=== PATIENT | female | born 1945 | race Caucasian/White ===

== ENCOUNTER → 2020-11-15 10:51 | Outpatient (CLI) | payer MEDICARE, OTHER, SELFPAY ==
--- NOTE | 2020-11-15 10:55 | DI.RAD.S_ITS ---
PROCEDURE: XR LUMBAR SPINE MIN 4V INDICATIONS: Lumbar radiculopathy TECHNIQUE: 5 views of the lumbar spine were acquired, including bilateral oblique views. COMPARISON: None. FINDINGS: Bones: No acute fracture identified. Lumbar dextroscoliosis is noted. Multilevel degenerative endplate sclerosis and spurring. Diffuse facet arthropathy. Postsurgical changes with interbody cage graft seen at the L4-L5 level. There is residual grade 1/2 anterolisthesis of L4 on L5. Severe narrowing of the L2-L3 disc space. Moderate narrowing of the remaining lumbar disc spaces. Bilateral hip and sacroiliac degenerative changes, sclerosis and spurring. Lucency in the region of the L4 pars interarticularis on the lateral view. Soft tissues: Surgical staple line projects in the left abdomen. Oblique images: No pars defects. IMPRESSION: Dextroscoliosis and multilevel moderate to severe spondylosis as above. Diffuse facet arthropathy Dictated by: Akira Amaya M.D. on 11/15/2020 at 11:54 Approved by: Akira Amaya M.D. on 11/15/2020 at 12:00
== END ==
PROVIDERS: PCP Physician Assistant; Referring Provider Physical Medicine & Rehabilitation; Visit Provider Physical Medicine & Rehabilitation
DX: M47.26 Other spondylosis with radiculopathy, lumbar region (principal); M41.86 Other forms of scoliosis, lumbar region; M43.16 Spondylolisthesis, lumbar region; M48.061 Spinal stenosis, lumbar region without neurogenic claudication; Z98.1 Arthrodesis status
CPT/HCPCS: 72110

== ENCOUNTER → 2021-02-18 09:15 | Outpatient (CLI) | payer MEDICARE, OTHER, SELFPAY ==
[2021-02-18 10:10] LABS: Cholesterol 124 mg/dL (140-199); HDL Cholesterol 69 mg/dL (40-60); LDL Cholesterol Calculated 43 mg/dL (<100); Triglycerides 58 mg/dL (35-150)
== END ==
PROVIDERS: PCP Physician Assistant; Referring Provider Internal Medicine Cardiovascular Disease; Visit Provider Internal Medicine Cardiovascular Disease
DX: E78.2 Mixed hyperlipidemia (principal); D50.9 Iron deficiency anemia, unspecified; Z98.84 Bariatric surgery status
CPT/HCPCS: 36415; 80061

== ENCOUNTER → 2021-02-19 14:44 | Outpatient (CLI) | payer MEDICARE, OTHER, SELFPAY ==
--- NOTE | 2021-02-19 | DI.MG.S_ITS ---
BILATERAL DIGITAL SCREENING MAMMOGRAM 3D/2D WITH CAD: 02/19/2021 CLINICAL: Routine screening. Comparison is made to exams dated: 10/04/2015 mammogram, 10/11/2016 mammogram, and 05/02/2019 ultrasound - outside facility. The tissue of both breasts is heterogeneously dense. This may lower the sensitivity of mammography. Current study was also evaluated with a Computer Aided Detection (CAD) system. There are calcifications in both breasts. There also are benign vascular calcifications in both breasts. No significant masses, calcifications, or other findings are seen in either breast. There has been no significant interval change. IMPRESSION: BENIGN There is no mammographic evidence of malignancy. A 1 year screening mammogram is recommended. This exam was interpreted at Station ID: [id number]. NOTE: For mammograms, a report in lay terms will be sent to the patient. Approximately 15% of breast malignancies will not be visualized mammographically. In the management of a palpable breast mass, a negative mammogram must not discourage biopsy of a clinically suspicious lesion. Electronically Signed By: Moe Hicks M.D. at/:02/21/2021 15:33:55 letter sent: Normal Exam ACR BI-RADS Category 2: Benign Finding(s) 3342F
== END ==
PROVIDERS: PCP Physician Assistant; Referring Provider Physician Assistant; Visit Provider Physician Assistant
DX: Z12.31 Encounter for screening mammogram for malignant neoplasm of breast (principal)
CPT/HCPCS: 77063; 77067

== ENCOUNTER → 2021-04-08 16:12 | Outpatient (CLI) | payer MEDICARE, OTHER, SELFPAY ==
[2021-04-08 17:29] LABS: Erythrocyte Sedimentation Rate 14 MM/HR (0-20)
[2021-04-08 18:21] LABS: C-Reactive Protein Quant < 0.5 mg/dL (<1.0)
== END ==
PROVIDERS: PCP Physician Assistant; Referring Provider Orthopaedic Surgery; Visit Provider Orthopaedic Surgery
DX: Z96.659 Presence of unspecified artificial knee joint (principal)
CPT/HCPCS: 36415; 83520; 85651; 86140

== ENCOUNTER → 2021-05-02 08:49 | Outpatient (CLI) | payer MEDICARE, OTHER, SELFPAY ==
[2021-05-02 12:12] LABS: COVID19 -Nasal RAPID Negative (Negative)
== END ==
PROVIDERS: PCP Physician Assistant; Visit Provider Physician Assistant
DX: Z20.822 Contact with and (suspected) exposure to COVID-19 (principal)
CPT/HCPCS: 87635; C9803

== ENCOUNTER → 2021-05-04 09:12 | Outpatient (CLI) | payer MEDICARE, OTHER, SELFPAY ==
--- NOTE | 2021-05-04 | DI.ECHO.S_ITS ---
[place] [facility]---------+ [facility] +---------+ : : [address] [place] : : : : [id number] : : : : Phone: [phone]+ Echocardiogram Report + + :Name: JOSE YARBROUGH Study Date: 05/04/2021 Height: 60.5 in: :[facility] ReadingLocation: Weight: 157 lb : : Gender: Female BSA: 1.7 m2 : :: 1945 Age: 76 yrs BP: 148/91 mmHg: :Reason For Study: DYSPNEA, DIASTOLIC HEART FAILURE : :Ordering Physician: NIMA, : :NONA Performed By: Pippa Coburn : :Referring: NONA MARRERO E : + + Interpretation Summary The ejection fraction is estimated to be 65-70%. Grade II diastolic dysfunction. Visually, the left atrium is moderately dilated. The right ventricle is at the upper limits of normal in size. The right ventricular systolic function is normal. The right atrium is mildly dilated. There is evidence of an intrapulmonary shunt; 6 beats after agitated saline contrast injection, bubbles seen in left atrium. There is mild mitral regurgitation. There is mild to moderate tricuspid regurgitation. PASP is approximately 30 to 35 mmHg. Procedure: A two-dimensional transthoracic echocardiogram with color flow and Doppler was performed. The study quality was technically adequate. There is no prior echocardiogram noted for this patient. A saline contrast injection was performed to assess for cardiac shunting. The injection was performed through an intravenous line in the left arm. The patient was in sinus rhythm with heart rates between 61-74 bpm during the exam. Left Ventricle: The left ventricle is normal in size. Proximal septal thickening is noted. The ejection fraction is estimated to be 65-70%. Grade II diastolic dysfunction. Right Ventricle: The right ventricle is at the upper limits of normal in size. The right ventricular systolic function is normal. Atria: Visually, the left atrium is moderately dilated. The right atrium is mildly dilated. There is no Doppler evidence for an interatrial shunt. Injection of contrast documented no interatrial shunt. There is evidence of an intrapulmonary shunt; 6 beats after agitated saline contrast injection, bubbles seen in left atrium. Mitral Valve: There is mild mitral annular calcification. The mitral regurgitant jet is eccentrically directed. There is mild mitral regurgitation. Aortic Valve: The aortic valve is trileaflet. The aortic valve opens well. There is no aortic valve stenosis. There is mild aortic regurgitation. Tricuspid Valve: The tricuspid valve is normal in structure and function. There is mild to moderate tricuspid regurgitation. PASP is approximately 30 to 35 mmHg. Pulmonic Valve: The pulmonic valve leaflets are thin and pliable; valve motion is normal. There is no pulmonic valvular regurgitation. Great Vessels: The aortic root is normal size. The ascending aorta is at the upper limits of normal in size. The IVC is of normal diameter and collapses greater than 50% with a sniff. This suggests a low right atrial pressure of 3 mm Hg. Pericardium/ Pleura There is no pericardial effusion. There is no pleural effusion. MMode/2D Measurements & Calculations LVIDd: 5.1 cm LVOT diam: 2.0 cm LVIDs: 2.9 cm Ao root diam: 3.4 cm FS: 41.8 % asc Aorta Diam: 3.4 cm IVSd: 0.91 cm LVPWd: 1.0 cm LV armando. diameter/BSA (cm/m^2): 3.0 LV sys. diameter/BSA (cm/m^2): 1.7 LA A2 area: 31.3 cm2 RA long axis: 4.8 cm LA A4 area: 26.9 cm2 RA area: 19.1 cm2 LA length (vol): 5.6 cm RA vol: 63.8 ml LA vol: 127.3 ml RA : 37.7 ml/m2 LA vol index: 75.1 ml/m2 IVC diam: 1.3 cm RVD1 (basal): 4.0 cm TAPSE: 2.7 cm Doppler Measurements & Calculations Ao V2 max: 170.4 cm/sec LVOT Max Socrates: 135.0 cm/sec Ao V2 mean: 113.7 cm/sec LV V1 max P.3 mmHg Ao max P.6 mmHg LV V1 VTI: 30.0 cm Ao mean P.8 mmHg SONI(I,D): 2.6 cm2 Ao V2 VTI: 36.2 cm SONI(V,D): 2.5 cm2 sev ratio: 0.83 SONI indexed to BSA (cm^2/m^2): 1.5 AI P1/2t: 682.8 msec AI dec slope: 189.7 cm/sec2 MV E max socrates: 96.9 cm/sec TR max socrates: 258.0 cm/sec MV A max socrates: 128.3 cm/sec TR max P.6 mmHg MV E/A: 0.76 PA V2 max: 98.5 cm/sec Med Peak E' Socrates: 4.3 cm/sec PA V2 mean: 67.7 cm/sec E/E' med: 22.8 PA mean P.0 mmHg Lat Peak E' Scorates: 5.0 cm/sec PA pr(Accel): 32.8 mmHg E/E' lat: 19.5 E/e' average: 21.1 MV dec time: 0.34 sec SV(LVOT): 94.0 ml Reading Physician:02:35 PM
--- NOTE | 2021-05-04 18:35 | DI.NM.S_ITS ---
DATE OF SERVICE: 05/04/2021 PROCEDURE PERFORMED: Pharmacologic vasodilator stress and rest myocardial perfusion imaging with gating to assess ejection fraction and regional wall motion. ORDERING PROVIDER: Dr. Nona Marrero. INDICATIONS: The patient is a 76-year-old female with exertional dyspnea, palpitations, and cardiomyopathy. PHARMACOLOGIC STRESS: Per protocol, 0.4 mg of regadenoson was infused with a normal hemodynamic response. The patient developed mild dyspnea and flushing, but no chest discomfort. Her resting ECG shows sinus rhythm with normal ST segments, and there are no significant ST-segment shifts or arrhythmias with stress. Per protocol, 25.0 millicuries of technetium-99m Myoview was injected and she was imaged 10 minutes later using a gated SPECT acquisition protocol. Earlier in the day while at rest, she had been injected with 12.2 millicuries of technetium-99m Myoview and was imaged 20 minutes later, again using a gated SPECT acquisition protocol. FINDINGS: 1. Raw data: There is good myocardial tracer uptake. The lung/heart ratio is normal at 0.30 with a normal TID ratio of 1.15. 2. Quantitated gated SPECT: Post-stress ejection fraction is estimated at 77% without any focal wall motion abnormality. The resting ejection fraction is calculated at 85%, although visually appears quite similar to that of the post-stress ejection fraction. Resting end-diastolic volume is normal at 85 mL. 3. Myocardial perfusion imaging: Post-stress supine images shows a normal myocardial perfusion pattern without any perfusion defects, supported by normal perfusion imaging in the prone position. The resting images show an identical perfusion pattern without any areas of significant improvement. IMPRESSION: 1. Normal myocardial perfusion study. 2. No evidence of myocardial ischemia or previous myocardial infarction. 3. Normal left ventricular systolic function with normal left ventricular volumes and no focal wall motion abnormality. 4. Dyspnea, but no chest discomfort or ECG evidence of ischemia with pharmacologic vasodilator stress. Namita Shaikh - [place]/jose/babak doc#: [id number]/job#: [id number] dd: 05/04/2021 16:30:00 dt: 05/04/2021 18:25:00 DICTATING MD/COPIES TO: Dorian Pardo MD; Nona Marrero M.D. COPIES MNE: PATY;
== END ==
PROVIDERS: PCP Physician Assistant; Referring Provider Internal Medicine Cardiovascular Disease; Visit Provider Internal Medicine Cardiovascular Disease
DX: I08.3 Combined rheumatic disorders of mitral, aortic and tricuspid valves (principal); I25.119 Atherosclerotic heart disease of native coronary artery with unspecified angina pectoris; I50.32 Chronic diastolic (congestive) heart failure; I42.9 Cardiomyopathy, unspecified; R06.00 Dyspnea, unspecified; R00.2 Palpitations
CPT/HCPCS: 78452; 93017; 93306; A9502; J2785

== ENCOUNTER → 2021-05-05 09:21 | Outpatient (CLI) | payer MEDICARE, OTHER, SELFPAY ==
--- NOTE | 2021-05-05 | DI.US.S_ITS ---
LIMITED ULTRASOUND OF RIGHT BREAST: 05/05/2021 CLINICAL: Focal right breast pain. Comparison is made to exams dated: 02/19/2021 mammogram - [facility], 05/02/2019 ultrasound, 04/04/2017 mammogram, and 04/04/2017 ultrasound - outside facility. Real-time ultrasound of the right breast 2-3 o'clock region was performed on the area of interest. No discrete cystic or solid mass lesion identified in the area of focal pain. IMPRESSION: NEGATIVE There is no sonographic evidence of malignancy. There is no abnormality seen in the right breast to correspond with the pain at 2:30 o'clock, however, clinical followup is recommended. Return to annual mammogram screening schedule is recommended. Future imaging is recommended as follows: 02/20/2022 screening mammogram. This exam was interpreted at Station ID: [id number]. Electronically Signed By: Sheng Espino M.D. ddp/:05/05/2021 12:13:47 letter sent: Clinical Evaluation Ultrasound BI-RADS: 1 Negative
== END ==
PROVIDERS: PCP Physician Assistant; Referring Provider Physician Assistant; Visit Provider Physician Assistant
DX: N64.4 Mastodynia (principal)
CPT/HCPCS: 76642

== ENCOUNTER → 2021-11-04 15:44 | Outpatient (CLI) | payer MEDICARE, OTHER, SELFPAY ==
--- NOTE | 2021-11-04 | DI.US.S_ITS ---
PROCEDURE: US CAROTID DOPPLER BI INDICATIONS: Atherosclerosis of aorta TECHNIQUE: Color and pulse Doppler interrogation was performed of both carotid systems, with image documentation and velocity measurements. COMPARISON: None. FINDINGS: Stenosis calculations are based on SRU (Society of Radiologists in Ultrasound) criteria. Right side: Brachial blood pressure: 132/80 mm Hg. Common carotid artery peak systolic velocity: 111 cm/sec. Internal carotid artery peak systolic velocity: 73 cm/sec. Internal carotid artery end diastolic velocity: 26 cm/sec. External carotid artery peak systolic velocity: 75 cm/sec. ICA/CCA peak systolic ratio: 0.7 . Porter scale imaging description: Mild scattered plaque Percent internal carotid artery stenosis: Less than 50% . Vertebral artery: Flow direction is antegrade. Left side: Brachial blood pressure: 133/81 mm Hg. Common carotid artery peak systolic velocity: 67 cm/sec. Internal carotid artery peak systolic velocity: 71 cm/sec. Internal carotid artery end diastolic velocity: 22 cm/sec. External carotid artery peak systolic velocity: 36 cm/sec. ICA/CCA peak systolic ratio: 1.1 . Porter scale imaging description: Moderate scattered plaque. Percent internal carotid artery stenosis: Less than 50% . Vertebral artery: Flow direction is antegrade. IMPRESSION: Less than 50% bilateral internal carotid artery stenosis. Dictated by: Virgil Navarro [facility] Interpreted: Daniel Cosme MD on 11/04/2021 at 16:34 Transcribed by: KARL on 11/04/2021 at 16:35 Approved by: Daniel Cosme M.D. on 11/04/2021 at 17:04
== END ==
PROVIDERS: PCP Physician Assistant; Referring Provider Internal Medicine Cardiovascular Disease; Visit Provider Internal Medicine Cardiovascular Disease
DX: I65.23 Occlusion and stenosis of bilateral carotid arteries (principal); I70.0 Atherosclerosis of aorta
CPT/HCPCS: 93880

== ENCOUNTER → 2022-01-23 18:33 | Outpatient (CLI) | payer MEDICARE, OTHER, SELFPAY ==
[2022-01-23 19:19] LABS: COVID19 -Nasal RAPID Negative (Negative)
== END ==
PROVIDERS: PCP Physician Assistant; Visit Provider Student in an Organized Health Care Education/Training Program
DX: Z20.822 Contact with and (suspected) exposure to COVID-19 (principal)
CPT/HCPCS: 87635

== ENCOUNTER 2022-02-02 01:31 | Emergency (ER) | payer MEDICARE, OTHER, SELFPAY ==
[2022-02-02 01:35] VITALS: BP 124/67; PULSE 62; RESP 18; TEMP 36.6; O2SAT 92
--- NOTE | 2022-02-02 01:36 | DI.RAD.S_ITS ---
PROCEDURE: XR FEMUR LT MIN 2V INDICATIONS: fall with pain TECHNIQUE: 6 views of the femur were acquired. COMPARISON: None. FINDINGS: Bones: A left knee prosthesis is demonstrated with long-stem femoral and tibial components. A mildly displaced periprosthetic spiral fracture is demonstrated in the distal femoral shaft. Proximal femur appears intact. Visualized bony pelvis also appears intact. There is deformity of the visualized proximal tibial shaft likely representing sequelae of prior trauma. Soft tissues: No suspicious soft tissue calcifications or masses. There is diffuse atrophy of the visualized musculature. IMPRESSION: 1. Periprosthetic fracture of the distal femoral shaft. Dictated by: Sheng Espino M.D. on 02/02/2022 at 2:14 Approved by: Sheng Espino M.D. on 02/02/2022 at 2:16
--- NOTE | 2022-02-02 01:37 | DI.CT.S_ITS ---
PROCEDURE: CT HEAD/BRAIN WO CON INDICATIONS: syncope, fall, injury TECHNIQUE: Noncontrast 4.5 mm thick angled axial sections acquired from the foramen magnum to the vertex, with coronal and sagittal reformats. For radiation dose reduction, the following was used: automated exposure control, adjustment of mA and/or kV according to patient size. COMPARISON: [facility], CT, CT CERVICAL SPINE WO CON, 02/02/2022, 2:05. FINDINGS: Image quality: Excellent. CSF spaces: Basal cisterns are patent. No extra-axial fluid collections. Ventricles are normal in size and shape. Brain: No midline shift. No intracranial masses or hemorrhage. No area of hypodensity in a large vascular distribution to suggest acute infarction. Periventricular hypodensity consistent with chronic microvascular ischemic change. Age-related parenchymal loss. Skull and face: Calvarium and visualized facial bones are intact, without suspicious lesions. Sinuses: Visualized sinuses and mastoids are clear. IMPRESSION: No acute intracranial abnormality. This report is concordant with the overnight preliminary interpretation. Dictated by: Sony Cabezas M.D. on 02/02/2022 at 7:54 Approved by: Sony Cabezas M.D. on 02/02/2022 at 7:57
--- NOTE | 2022-02-02 01:37 | DI.CT.S_ITS ---
PROCEDURE: CT CERVICAL SPINE WO CON INDICATIONS: syncope, fall, injury TECHNIQUE: Noncontrast 3 mm thick sections acquired from the skull base to the T4 level. Sagittal and coronal reformats were then constructed. For radiation dose reduction, the following was used: automated exposure control, adjustment of mA and/or kV according to patient size. COMPARISON: None. FINDINGS: Image quality: Excellent. Bones: ACDF at C5-C7. No fractures or dislocations. Anterolisthesis of L3 on L4 measuring 0.2 cm. Anterolisthesis of C7 on T1 measuring at 0.3 cm. Loss of intervertebral disc space height at multiple levels. Moderate to severe degenerative change. Visualized superior ribs are intact. Soft tissues: Prevertebral soft tissues are normal in thickness. No paravertebral hematomas. No apical pneumothoraces. IMPRESSION: No acute osseous abnormality. C5-C7 ACDF. Moderate to severe degenerative change. This report is concordant with the overnight preliminary interpretation. Dictated by: Sony Cabezas M.D. on 02/02/2022 at 7:49 Approved by: Sony Cabezas M.D. on 02/02/2022 at 7:54
--- NOTE | 2022-02-02 01:54 | ED_ITS ---
HPI - Extremity Injury (Lower) <Magdaleno Rickie, DO - Last Filed: 02/03/22 03:42> General Chief Complaint: Extremity Injury, Lower Stated Complaint: Syncope? Leg injury? Time Seen by Provider: 02/02/22 01:36 Source: patient and EMS Mode of arrival: EMS History of Present Illness HPI Narrative: 76-year-old female nonsmoker with history of heart failure, renal insufficiency, left total knee, gait instability, iron deficiency anemia presents by EMS for evaluation of a possible syncopal episode with concern for left femur injury. She had gone to sleep in her normal state of health and had taken double her normal dose of Ambien. Per the 's report (she is a poor historian) she had gotten up a few hours ago and he went to find her when she did not return, he found her lying on the ground with her left lower extremity pinned under her. She does not think she hit her head, neck or back. She denies any chest pain or shortness of breath. She does have significant pain in her left leg proximal to the knee. This is closed, isolated and neurovascularly intact. She is activated as a modified trauma given he would greater than 65 with suspected injury Related Data Home Medications Medication Instructions Recorded Confirmed atorvastatin 40 mg tablet 40 mg PO BEDTIME 11/23/20 01/23/22 ezetimibe 10 mg tablet (Zetia) 10 mg PO DAILY 11/23/20 01/23/22 ipratropium bromide 42 mcg (0.06 2 spray intranasal BID 11/23/20 01/23/22 %) nasal spray methimazole 5 mg tablet 5 mg PO DAILY 11/23/20 01/23/22 metoprolol succinate 25 mg 25 mg PO DAILY 11/23/20 01/23/22 tablet,extended release 24 hr (Toprol XL) valsartan 40 mg tablet 40 mg PO DAILY 11/23/20 01/23/22 zolpidem 5 mg tablet (Ambien) 5 mg PO BEDTIME PRN Insomnia 11/23/20 01/23/22 acetaminophen 650 mg 650 mg PO Q8H PRN Pain (Scale 01/31/21 01/23/22 tablet,extended release (Tylenol Score 4-6) Arthritis Pain) albuterol 90 mcg/actuation aerosol 90 mcg inhalation DAILY 01/31/21 01/23/22 inhaler alpha lipoic acid 600 mg capsule 600 mg PO DAILY 01/31/21 01/23/22 buspirone 5 mg tablet 5 mg PO TID 01/31/21 01/23/22 calcium carbonate [Calcium 500] 500 mg PO DAILY 01/31/21 01/23/22 cholecalciferol (vitamin D3) 2,000 unit PO DAILY 01/31/21 01/23/22 denosumab 60 mg/mL subcutaneous 60 mg SUBCUT [id number] 01/31/21 01/23/22 syringe (Prolia) diclofenac sodium 1 % topical gel topical PRN 01/31/21 01/23/22 (Voltaren Arthritis Pain) estradiol 0.01% (0.1 mg/gram) 1 g vaginal 2XW 01/31/21 01/23/22 vaginal cream lactobacillus comb no.10 20 20,000 mmu cells PO BID 01/31/21 01/23/22 billion cell capsule (Probiotic) lidocaine 5 % topical patch 1 patch topical DAILY 01/31/21 01/23/22 multivitamin 1 tab PO DAILY 01/31/21 01/23/22 duloxetine 60 mg capsule,delayed 60 mg PO DAILY 08/30/21 01/23/22 release (Cymbalta) Allergies Allergy/AdvReac Type Severity Reaction Status Date / Time alcohol Allergy Unknown Verified 01/23/22 18:16 [From Mastisol Adhesive] gum mastic Allergy Unknown Verified 01/23/22 18:16 [From Mastisol Adhesive] methyl salicylate Allergy Unknown Verified 01/23/22 18:16 [From Mastisol Adhesive] storax Allergy Unknown Verified 01/23/22 18:16 [From Mastisol Adhesive] Sulfa (Sulfonamide Allergy Unknown Verified 01/23/22 18:16 Antibiotics) Review of Systems <Magdaleno Damian DO - Last Filed: 02/03/22 03:42> Review of Systems Narrative: GENERAL: Denies chills, fatigue, malaise, fever, sweats. HEENT: Denies sinus pain, ear pain, sore throat, difficulty swallowing, dizziness. RESPIRATORY: Denies dyspnea, cough, wheezing, hemoptysis, sputum. CARDIOVASCULAR: Denies chest pain, palpitations, orthopnea, edema, GASTROINTESTINAL: Denies nausea, vomiting, abdominal pain, diarrhea, constipation, melena. : Denies dysuria, frequency, incontinence, hematuria, urinary retention. MUSCULOSKELETAL: See HPI SKIN: Denies rash, skin lesions, or other NEUROLOGIC: Denies weakness, headache, numbness, change in speech, confusion, seizures, incoordination. PSYCHIATRIC: No concerning psychosocial issues. 12 point review of systems is negative except for those stated above Patient History <Magdaleno Damian DO - Last Filed: 02/03/22 03:42> Medical History Gait instability History of heart failure Lumbar post-laminectomy syndrome Lumbar radiculopathy Renal insufficiency Sacral dysfunction Surgical History H/O carpal tunnel repair H/O knee surgery H/O shoulder surgery History of ankle surgery History of cervical spinal arthrodesis History of total left knee replacement History of total replacement of right shoulder joint Hx of hernia repair Hx of tonsillectomy Family History Unknown Unknown family medical history Social History Smoking Status: Never smoker alcohol intake: never Smoking Status: Never smoker alcohol intake frequency: a few times a month Substance Use Type: does not use Exam <Magdaleno Damian DO - Last Filed: 02/03/22 03:42> Narrative Exam Narrative: GENERAL: [76] year old patient appears stated age. Well-developed patient, in mild distress. GCS 15, alert and oriented x3 HEAD: Atraumatic. Normocephalic. No contusion, abrasion EYES: Pupils equal round and reactive. Extraocular motions intact. No scleral icterus. No injection or drainage. ENT: Nose without bleeding, purulent drainage. Throat without erythema, tonsillar hypertrophy or exudate. Airway patent. NECK: Trachea midline. Non tender CARDIOVASCULAR: Regular rate and rhythm without murmurs, gallops, or rubs. RESPIRATORY: Clear to auscultation. Breath sounds equal bilaterally. No wheezes, rales, or rhonchi. GASTROINTESTINAL: Abdomen soft, non-tender, nondistended. EXTREMITIES: Pain of distal femur, proximal to the knee, there is a moderate effusion and tenderness to palpation, this is closed, isolated and neurovascularly intact BACK: Nontender without deformity or crepitance. No flank tenderness. NEURO: AOx3. SKIN: No rash or erythema of visible areas Initial Vital Signs Initial Vital Signs: Vital Signs Temperature 98 F 02/02/22 01:35 Pulse Rate 62 02/02/22 01:35 Respiratory Rate 18 02/02/22 01:35 Blood Pressure 124/67 02/02/22 01:35 Pulse Oximetry 92 02/02/22 01:35 Oxygen Delivery Method 02/02/22 01:35 <Huong Sen DO - Last Filed: 02/02/22 10:54> Initial Vital Signs Initial Vital Signs: Vital Signs Temperature 98 F 02/02/22 01:35 Pulse Rate 62 02/02/22 01:35 Respiratory Rate 18 02/02/22 01:35 Blood Pressure 124/67 02/02/22 01:35 Pulse Oximetry 92 02/02/22 01:35 Oxygen Delivery Method 02/02/22 01:35 Course <Magdaleno Damian DO - Last Filed: 02/03/22 03:42> Orders Ordered: Discontinued Medications Acetaminophen (Acetaminophen 325 Mg Tablet) 975 mg PO NOW ONE Stop: 02/02/22 06:11 Last Admin: 02/02/22 06:30 Dose: 975 mg Documented By: CHRIS Hydromorphone HCl (Hydromorphone 0.5 Mg Inj) 0.5 mg IV NOW ONE Stop: 02/02/22 09:56 Last Admin: 02/02/22 10:00 Dose: 0.5 mg Documented By: AMU Consultations Consultation #1: Discussed with on-call orthopedist, Dr. Yung, after reviewing the case and imaging she recommends patient be transferred to the [facility] in [facility] for use of their periprosthetic fracture group Consultation #2: Call to [facility], images and face sheet had been pushed. Patient is appropriate for their facility, however the periprosthetic group is not available for consultation until 8:00 a.m., request call back at that time, chart is started and open and transferred to expected to be smooth Vital Signs Vital signs: Vital Signs - 8 hr 02/02/22 05:03 02/02/22 10:01 Pulse Rate 72 88 Respiratory Rate 16 16 Blood Pressure 133/73 120/64 Pulse Oximetry 97 97 Oxygen Delivery Method Room Air Room Air <Huong Sen DO - Last Filed: 02/02/22 10:54> Orders Ordered: Discontinued Medications Acetaminophen (Acetaminophen 325 Mg Tablet) 975 mg PO NOW ONE Stop: 02/02/22 06:11 Last Admin: 02/02/22 06:30 Dose: 975 mg Documented By: CHRIS Hydromorphone HCl (Hydromorphone 0.5 Mg Inj) 0.5 mg IV NOW ONE Stop: 02/02/22 09:56 Last Admin: 02/02/22 10:00 Dose: 0.5 mg Documented By: MACK Vital Signs Vital signs: Vital Signs - 8 hr 02/02/22 05:03 02/02/22 10:01 Pulse Rate 72 88 Respiratory Rate 16 16 Blood Pressure 133/73 120/64 Pulse Oximetry 97 97 Oxygen Delivery Method Room Air Room Air MDM - Extremity Injury (Lower) <Magdaleno Damian DO - Last Filed: 02/03/22 03:42> Lab Data Result diagrams: 02/02/22 01:20 02/02/22 01:20 Labs: Lab Results 02/02/22 02/02/22 02/02/22 Range/Units 01:20 01:20 01:58 WBC 6.2 (4.5-11.0) X10^3/uL RBC 3.63 L (4.0-5.2) X10^6/uL Hgb 11.7 L (12.0-16.0) g/dL Hct 34.3 L (36-46) % MCV 94.6 (80-100) fL MCH 32.2 (26-34) PG MCHC 34.0 (30-36) % RDW 13.0 (11.6-14.8) % Plt Count 267 (150-400) X10^3/uL Neut % (Auto) 46.0 L (50-75) % Lymph % (Auto) 43.7 H (25-40) % Wolfe % (Auto) 7.1 (3-14) % Eos % (Auto) 2.6 (2-4) % Baso % (Auto) 0.6 (0-2) % Neut # (Auto) 2900 (1722-5699) /uL Lymph # (Auto) 2700 (6477-9120) /uL Wolfe # (Auto) 400 (0-900) /uL Eos # (Auto) 200 (0-450) /uL Baso # (Auto) 0 (0-100) /uL Sodium 137 (137-145) mmol/L Potassium 3.5 (3.4-5.1) mmol/L Chloride 106 (98-107) mmol/L Carbon Dioxide 20 L (22-32) mmol/L BUN 22 H (7-17) mg/dL Creatinine 1.07 H (0.52-1.04) mg/dL Estimated GFR 55 L (>60) mL/min BUN/Creatinine Ratio 20.6 (6-22) Glucose 105 (80-110) mg/dL Calcium 8.6 (8.4-10.2) mg/dL Magnesium 1.8 (1.6-2.3) mg/dL Total Bilirubin 0.5 (0.2-1.3) mg/dL AST 40 H (14-36) IU/L ALT 22 (<35) IU/L Alkaline Phosphatase 40 (38-126) U/L Total Creatine Kinase 85 (30-135) U/L CK-MB (CK-2) TNP CK-MB (CK-2) Rel Index TNP Troponin I 0.022 (0.01-0.034) ng/mL NT-Pro-B Natriuret Pep 403 H (<125) pg/mL Total Protein 6.2 L (6.3-8.2) g/dL Albumin 3.7 (3.5-5.0) g/dL Globulin 2.5 (1.7-4.1) g/dL Albumin/Globulin Ratio 1.5 (1.0-2.8) SARS-CoV-2 (PCR) Negative (Negative) Urine Dip Bedside Urine Glucose Negative Bedside Urine Bilirubin - Negative Bedside Urine Ketone - Negative Urine Specific [place] 1.015 Bedside Urine Occult Blood - Negative Bedside Urine pH 6.0 Bedside Urine Protein - Negative Bedside Urine Urobilinogen - Negative Bedside Urine Nitrite - Negative Bedside Urine Leukocytes - Negative Esterase Imaging Data CT scan - head: Radiologist's Impression: Unremarkable CT of the head CT - cervical spine: Radiologist's Impression: Degenerative and operative changes of cervical spine. No fracture identified Extremity x-ray #1: Radiologist's Impression: Namita Shaikh?(Jose)??76??F??1945 ? Allergy/Adv: alcohol, gum mastic, methyl salicylate, storax, Sulfa (Sulfonamide Antibiotics) (More??) Close Head CT 02/02/[address] 02/02/22 Femur X-Ray (Signed) Sheng Espino - 02/02/22 Carotid Doppler Study (Signed) Daniel Cosme - 11/04/21 Breast Ultrasound (Signed) Sheng Espino - 05/05/21 Radiology Report (Cancelled) EdvinDorian - 05/04/21 Myocardial Perfusion Scan Nuc Med (Signed) Dorian Pardo - 05/04/21 Echocardiogram Ultrasound (Signed) Nona Marrero - 05/04/21 Mammogram Screening (Signed) Moe Hicks - 02/19/21 Lumbar Spine X-Ray (Signed) Akira Amaya - 11/15/20 DI Result 03/31/19 Launch?[place] [address] XRay Report Signed Patient: Namita Shaikh MR#: [id number] : 1945 Acct:[id number] Age/Sex: 76 / F Date of Service: 02/02/22 Loc: ED Accession Number: [id number] ?? Procedure: XR femur LT min 2V Ordering Provider: Magdaleno Damian D.O. PROCEDURE:? XR FEMUR LT MIN 2V ? INDICATIONS:? fall with pain ? TECHNIQUE:? 6 views of the femur were acquired.? ? COMPARISON:? None. ? FINDINGS:? ? Bones:? A left knee prosthesis is demonstrated with long-stem femoral and tibial components.? A mildly displaced periprosthetic spiral fracture is demonstrated in the distal femoral shaft.? Proximal femur appears intact.? Visualized bony pelvis also appears intact.? There is deformity of the visualized proximal tibial shaft likely representing sequelae of prior trauma. ? Soft tissues:? No suspicious soft tissue calcifications or masses.? There is diffuse atrophy of the visualized musculature.? ? IMPRESSION:? ? 1. Periprosthetic fracture of the distal femoral shaft. ? ? Dictated by: Sheng Espino M.D. on 02/02/2022 at 2:14 ? ? Approved by: Sheng Espino M.D. on 02/02/2022 at 2:16 ? <Huong Sen, DO - Last Filed: 02/02/22 10:54> Lab Data Labs: Lab Results 02/02/22 02/02/22 02/02/22 Range/Units 01:20 01:20 01:58 WBC 6.2 (4.5-11.0) X10^3/uL RBC 3.63 L (4.0-5.2) X10^6/uL Hgb 11.7 L (12.0-16.0) g/dL Hct 34.3 L (36-46) % MCV 94.6 (80-100) fL MCH 32.2 (26-34) PG MCHC 34.0 (30-36) % RDW 13.0 (11.6-14.8) % Plt Count 267 (150-400) X10^3/uL Neut % (Auto) 46.0 L (50-75) % Lymph % (Auto) 43.7 H (25-40) % Wolfe % (Auto) 7.1 (3-14) % Eos % (Auto) 2.6 (2-4) % Baso % (Auto) 0.6 (0-2) % Neut # (Auto) 2900 (2899-9466) /uL Lymph # (Auto) 2700 (6979-8337) /uL Wolfe # (Auto) 400 (0-900) /uL Eos # (Auto) 200 (0-450) /uL Baso # (Auto) 0 (0-100) /uL Sodium 137 (137-145) mmol/L Potassium 3.5 (3.4-5.1) mmol/L Chloride 106 (98-107) mmol/L Carbon Dioxide 20 L (22-32) mmol/L BUN 22 H (7-17) mg/dL Creatinine 1.07 H (0.52-1.04) mg/dL Estimated GFR 55 L (>60) mL/min BUN/Creatinine Ratio 20.6 (6-22) Glucose 105 (80-110) mg/dL Calcium 8.6 (8.4-10.2) mg/dL Magnesium 1.8 (1.6-2.3) mg/dL Total Bilirubin 0.5 (0.2-1.3) mg/dL AST 40 H (14-36) IU/L ALT 22 (<35) IU/L Alkaline Phosphatase 40 (38-126) U/L Total Creatine Kinase 85 (30-135) U/L CK-MB (CK-2) TNP CK-MB (CK-2) Rel Index TNP Troponin I 0.022 (0.01-0.034) ng/mL NT-Pro-B Natriuret Pep 403 H (<125) pg/mL Total Protein 6.2 L (6.3-8.2) g/dL Albumin 3.7 (3.5-5.0) g/dL Globulin 2.5 (1.7-4.1) g/dL Albumin/Globulin Ratio 1.5 (1.0-2.8) SARS-CoV-2 (PCR) Negative (Negative) Urine Dip Bedside Urine Glucose Negative Bedside Urine Bilirubin - Negative Bedside Urine Ketone - Negative Urine Specific Elon 1.015 Bedside Urine Occult Blood - Negative Bedside Urine pH 6.0 Bedside Urine Protein - Negative Bedside Urine Urobilinogen - Negative Bedside Urine Nitrite - Negative Bedside Urine Leukocytes - Negative Esterase MDM Narrative Medical decision making narrative: Patient signed out to me by Dr. Damian if seen evaluated patient myself. Periprosthetic left distal femur fracture neurovascularly intact. Had a syncopal episode after taking [address] Beebe, orthopedics at [facility] updated patient's symptoms and test results. Patient's previous surgeon was Dr. Morales reynolds. Patient has been kindly accepted to [facility], in a bed is available after 11:00 a.m. today. Patient will likely have surgery on SundayFebruary 07. Discharge Plan Departure Patient Disposition: [facility] Clinical Impression: Rupinder-prosthetic femoral shaft fracture Prescriptions: No Action atorvastatin 40 mg Tablet 40 mg PO BEDTIME methimazole 5 mg Tablet 5 mg PO DAILY zolpidem [Ambien] 5 mg Tablet 5 mg PO BEDTIME PRN (Reason: Insomnia) metoprolol succinate [Toprol XL] 25 mg Tablet Extended Release 24 Hr 25 mg PO DAILY ipratropium bromide 42 mcg (0.06 %) [place],Non-Aerosol 2 spray INTRANASAL BID valsartan 40 mg Tablet 40 mg PO DAILY ezetimibe [Zetia] 10 mg Tablet 10 mg PO DAILY diclofenac sodium [Voltaren Arthritis Pain] 1 % gel TOPICAL PRN buspirone 5 mg tablet 5 mg PO TID albuterol 90 mcg/actuation aerosol 90 mcg INHALATION DAILY duloxetine [Cymbalta] 60 mg Capsule,Delayed Release(Dr/Ec) 60 mg PO DAILY estradiol 0.01 % (0.1 mg/gram) cream 1 g vaginal 2XW Prolia 60 mg/mL syringe 60 mg SUBCUT [id number] lidocaine 5 % adhesive patch,medicated 1 patch topical DAILY Rx Instructions: leave on most painful area for up to 12 hrs multivitamin Tablet,Chewable 1 tab PO DAILY Probiotic 20 billion cell capsule 20,000 mmu cells PO BID Rx Instructions: administer with a meal calcium carbonate [Calcium 500] 500 mg PO DAILY cholecalciferol (vitamin D3) 2,000 unit PO DAILY alpha lipoic acid 600 mg capsule 600 mg PO DAILY acetaminophen [Tylenol Arthritis Pain] 650 mg tablet extended release 650 mg PO Q8H PRN (Reason: Pain (Scale Score 4-6)) Referrals: Jana Church PA-C [Primary Care Provider] -
[2022-02-02 02:12] LABS: Alanine Aminotransferase 22 IU/L (<35); Albumin 3.7 g/dL (3.5-5.0); Albumin Globulin Ratio 1.5 (1.0-2.8); Alkaline Phosphatase 40 U/L (38-126); BUN Creatinine Ratio 20.6 (6-22); Bilirubin Total 0.5 mg/dL (0.2-1.3); Blood Urea Nitrogen 22 mg/dL (7-17); Calcium 8.6 mg/dL (8.4-10.2); Carbon Dioxide 20 mmol/L (22-32); Chloride 106 mmol/L (98-107); Creatine Kinase 85 U/L (30-135); Estimated Glomerular Filt Rate 55 mL/min (>60); Globulin 2.5 g/dL (1.7-4.1); Glucose 105 mg/dL (80-110); Magnesium 1.8 mg/dL (1.6-2.3); Sodium 137 mmol/L (137-145); Total Protein 6.2 g/dL (6.3-8.2)
[2022-02-02 02:19] LABS: HEMOLYSIS 58 (0-50)
[2022-02-02 02:20] LABS: Aspartate Aminotransferase 40 IU/L (14-36)
[2022-02-02 02:21] LABS: Potassium 3.5 mmol/L (3.4-5.1)
[2022-02-02 02:22] LABS: Add Manual Diff / Slide Review NO; Basophils Absolute Auto 0 /uL (0-100); Basophils Percent Auto 0.6 % (0-2); Eosinophils Absolute Auto 200 /uL (0-450); Eosinophils Percent Auto 2.6 % (2-4); Hematocrit 34.3 % (36-46); Hemoglobin 11.7 g/dL (12.0-16.0); Lymphocytes Absolute Auto 2700 /uL (1100-4500); Lymphocytes Percent Auto 43.7 % (25-40); Mean Corpuscular Hemoglobin 32.2 PG (26-34); Mean Corpuscular Volume 94.6 fL (80-100); Monocytes Absolute Auto 400 /uL (0-900); Monocytes Percent Auto 7.1 % (3-14); Neutrophils Absolute Auto 2900 /uL (1500-7000); Platelet Count 267 X10^3/uL (150-400); Red Blood Cell Count 3.63 X10^6/uL (4.0-5.2); White Blood Cell Count 6.2 X10^3/uL (4.5-11.0)
[2022-02-02 02:23] LABS: NT-proBNP (BNP-Adult 18+) 403 pg/mL (<125); Troponin I 0.022 ng/mL (0.01-0.034)
[2022-02-02 02:39] VITALS: BP 130/69; PULSE 64; RESP 16; O2SAT 93
[2022-02-02 02:43] LABS: COVID19 -Nasal RAPID Negative (Negative)
[2022-02-02 05:03] VITALS: BP 133/73; PULSE 72; RESP 16; O2SAT 97
--- NOTE | 2022-02-02 05:04 | PC.NURSE ---
Patient states pain 3/10 at rest which is a manageable pain level for her. Pt states she doesnt need any pain medications at this time.
[2022-02-02] MEDS: ACETAMINOPHEN 325 MG TABLET 975 MG PO (06:30)
--- NOTE | 2022-02-02 09:36 | PC.NURSE ---
report called to Nu CRAWFORD at
[2022-02-02] MEDS: HYDROMORPHONE 0.5 MG INJ IV (10:00)
[2022-02-02 10:01] VITALS: BP 120/64; PULSE 88; RESP 16; O2SAT 97
== END 2022-02-02 10:11 | disposition short-term general hospital (02) ==
PROVIDERS: Emergency Medicine; Emergency Provider Emergency Medicine; PCP Physician Assistant; Referring Provider Emergency Medicine
DX: S72.302A Unspecified fracture of shaft of left femur, initial encounter for closed fracture (principal); R55 Syncope and collapse; Z20.822 Contact with and (suspected) exposure to COVID-19
CPT/HCPCS: 70450; 72125; 73552; 80053; 81003; 82550; 83735; 83880; 84484; 85025; 87635; 93005; 96374; 99284; C9803; J1170